=== PATIENT | female | born 1995 | race Caucasian/White ===

== ENCOUNTER 2019-12-30 17:08 | Emergency (ER) | payer OTHER, SELFPAY ==
[2019-12-30 17:14] VITALS: BP 126/75; PULSE 88; RESP 14; TEMP 36.9; O2SAT 100; BMI 28.4
[2019-12-30 18:30] VITALS: BP 121/63; PULSE 86; RESP 12; TEMP 36.8; O2SAT 100
[2019-12-30 18:32] VITALS: BP 125/62; PULSE 87; RESP 17; O2SAT 99
--- NOTE | 2019-12-30 18:36 | ED_ITS ---
HPI - Female Genitourinary General Chief complaint: Vaginal Bleeding Stated complaint: pelvic pain and issue with contral implant Time Seen by Provider: 12/30/19 18:34 Source: patient Mode of arrival: Ambulatory Limitations: no limitations History of Present Illness HPI Narrative: 24F daily smoker without known chronic medical problems presents with episodes of vaginal bleeding, just mild spotting, over the past few days to weeks. Additionally, patient has had pelvic discomfort more often than not ever since she had her IUD placed over a year ago. She denies discharge, fever, or chills. She's had no dysuria, hematuria. She is otherwise well and free of complaint and denies exposure to persons known to have COVID-19 Related Data Previous Rx's Medication Instructions Recorded doxycycline hyclate 100 mg PO BID #20 tab 12/30/19 Allergies Allergy/AdvReac Type Severity Reaction Status Date / Time No Known Drug Allergies Allergy Verified 12/30/19 17:14 Review of Systems Constitutional Constitutional: Denies chills, Denies fatigue, Denies fever(s), Denies frequent falls, Denies lethargy and Denies weakness Eyes Eyes: Denies change in vision, Denies eye discharge, Denies irritation and Denies loss of vision ENT Ears, Nose, Mouth, and Throat: Denies change in voice, Denies dizziness, Denies neck pain, Denies sore throat and Denies throat swelling Cardiovascular Cardiovascular: Denies chest pain, Denies irregular heart rhythm, Denies lightheadedness, Denies palpitations, Denies dyspnea, Denies dyspnea on exertion and Denies orthopnea Respiratory Respiratory: Denies cough, Denies dyspnea, Denies dyspnea on exertion and Denies wheezing Gastrointestinal Gastrointestinal: Denies abdominal pain, Denies change in bowel habits, Denies diarrhea, Denies nausea and Denies vomiting Genitourinary Genitourinary: Denies hematuria, Reports pelvic pain, Denies flank pain, Denies urinary incontinence and Denies urinary urgency Musculoskeletal Musculoskeletal: Denies back pain, Denies muscle weakness, Denies neck pain, Denies numbness and Denies tingling Integumentary/Breasts Skin/Breast: Denies pruritus, Denies erythema, Denies rash and Denies wounds Neurologic Neurologic: Denies behavioral changes, Denies confusion, Denies dizziness, Denies frequent falls, Denies loss of vision, Denies numbness, Denies tingling and Denies weakness Psychiatric Psychiatric: Denies anxiety, Denies behavioral changes, Denies confusion, Denies depression, Denies homicidal ideation and Denies suicidal ideation Endocrine Endocrine: Denies fatigue, Denies flushing and Denies palpitations Hematologic/Lymphatic Hematologic/Lymphatic: Denies easy bruising Allergic/Immunologic Allergic/Immunologic: Denies urticaria, Denies throat swelling and Denies wheezing Patient History tobacco type: vaping alcohol intake frequency: a few times a week Substance Use Type: does not use Exam Narrative Exam Narrative: GENERAL: [24] year old patient appears stated age. Well- nourished, well-developed patient, in mild distress. HEAD: Atraumatic. Normocephalic. EYES: Pupils equal round and reactive. Extraocular motions intact. No scleral icterus. No injection or drainage. ENT: Nose without bleeding, purulent drainage. Throat without erythema, tonsillar hypertrophy or exudate. Airway patent. NECK: Trachea midline. Non tender CARDIOVASCULAR: Regular rate and rhythm without murmurs, gallops, or rubs. RESPIRATORY: Clear to auscultation. Breath sounds equal bilaterally. No wheezes, rales, or rhonchi. GASTROINTESTINAL: Abdomen soft, non-tender, nondistended. PELVIC: Very minimal dark bleeding via closed cervical os. No discharge noted. Strings from IUD noted and IUD is easily removed EXTREMITIES: No edema or joint tenderness. BACK: Nontender without deformity or crepitance. No flank tenderness. NEURO: AOx3. SKIN: No rash or erythema of visible areas Initial Vital Signs Initial Vital Signs: Vital Signs Temperature 98.4 F 12/30/19 17:14 Pulse Rate 88 12/30/19 17:14 Respiratory Rate 14 12/30/19 17:14 Blood Pressure 126/75 12/30/19 17:14 Pulse Oximetry 100 12/30/19 17:14 Course Consultations Consultation #1: discussion with field sales representative after receipt of US. She recommends removing IUD and encouraging close follow up with field sales representative as well as course of doxycycline Vital Signs Vital signs: Vital Signs - 8 hr 12/30/19 17:14 12/30/19 18:32 Temperature 98.4 F Pulse Rate 88 87 Respiratory Rate 14 17 Blood Pressure 126/75 Blood Pressure [Right Arm] 125/62 Pulse Oximetry 100 99 MDM - Female Genitourinary Imaging Data US - FILLING MACHINE OPERATOR: Radiologist's Impression: Shanique Rocha 24 F [address] [address] Ultrasound Report Signed Patient: Shanique Rocha [facility]#: [id number] : 1995Acct:[id number] Age/Sex: 24 / FDate of Service: 12/30/19 Loc: ED Accession Number: [id number] Procedure: US pelvic complete Ordering Provider: Ruslan Fu D.O. PROCEDURE: US PELVIC COMPLETE INDICATIONS: LLQ PAIN, BLEEDING, DISCHARGE, IUD PROBLEM? TECHNIQUE: Real-time scanning was performed of the pelvic organs, with image documentation. Additional endovaginal scanning was necessary due to incomplete visualization of the adnexal and endometrial structures by transabdominal scanning. COMPARISON: None. FINDINGS: Transabdominal scanning: Limited scanning through the kidneys shows no hydronephrosis. No pathologic free abdominal or pelvic fluid. Endovaginal scanning: Uterus: Uterus is normal in size at 7.7 x 4.7 x 6.0 cm. The endometrium measures 19-20 mm in combined thickness. There is endometrial hyperemia. IUD appears to be partially located within the myometrium Ovaries: The right ovary measured 4.5 x 2.6 x 2.6 cm. Left ovary measures 4.3 x 2.1 x 2.1 cm IMPRESSION: Slightly malpositioned IUD appears to be partially located within the myometrium Thickened endometrium with hyperemic appearance cannot exclude endometritis. Please correlate clinically Dictated by: Migue Batista M.D. on 12/30/2019 at 20:08 Discharge Plan Departure Patient Disposition: Home Clinical Impression: Pelvic pain IUD migration Qualifiers: Encounter type: initial encounter Qualified Code(s): T83.32XA - Displacement of intrauterine contraceptive device, initial encounter Discharge Date/Time: 12/30/19 21:14 Instructions: DI for Intrauterine Device Removal Activity Restrictions/Additional Instructions: *You have been diagnosed with [pelvic pain, spotting and IUD removal] *What to do: *Take medications as directed *Follow up with your primary care provider in 2-3 days, call for an appointment. Let them know you were seen in the Emergency Department and that we ask that you be seen in follow up *Return to ER if you should have any new, worsening or concerning symptoms Prescriptions: New doxycycline hyclate 100 mg tablet 100 mg PO BID Qty: 20 RF: 0 Referrals: Sobeida Ernst MD [Physician] -
--- NOTE | 2019-12-30 18:40 | DI.US.S_ITS ---
PROCEDURE: US PELVIC COMPLETE INDICATIONS: LLQ PAIN, BLEEDING, DISCHARGE, IUD PROBLEM? TECHNIQUE: Real-time scanning was performed of the pelvic organs, with image documentation. Additional endovaginal scanning was necessary due to incomplete visualization of the adnexal and endometrial structures by transabdominal scanning. COMPARISON: None. FINDINGS: Transabdominal scanning: Limited scanning through the kidneys shows no hydronephrosis. No pathologic free abdominal or pelvic fluid. Endovaginal scanning: Uterus: Uterus is normal in size at 7.7 x 4.7 x 6.0 cm. The endometrium measures 19-20 mm in combined thickness. There is endometrial hyperemia. IUD appears to be partially located within the myometrium Ovaries: The right ovary measured 4.5 x 2.6 x 2.6 cm. Left ovary measures 4.3 x 2.1 x 2.1 cm IMPRESSION: Slightly malpositioned IUD appears to be partially located within the myometrium Thickened endometrium with hyperemic appearance cannot exclude endometritis. Please correlate clinically Dictated by: Migue Batista M.D. on 12/30/2019 at 20:08 Approved by: Migue Batista M.D. on 12/30/2019 at 20:12
[2019-12-30 20:01] VITALS: BP 120/57; PULSE 83; RESP 17; O2SAT 100
== END 2019-12-30 21:14 | disposition home or self-care (01) ==
PROVIDERS: Emergency Provider Emergency Medicine
DX: R10.2 Pelvic and perineal pain (principal); T83.32XA Displacement of intrauterine contraceptive device, initial encounter; N93.9 Abnormal uterine and vaginal bleeding, unspecified
CPT/HCPCS: 76830; 76856; 99283